=== PATIENT | male | born 1985 ===

== ENCOUNTER → 2019-03-06 | Outpatient (CLI) | payer SELFPAY ==
[2019-03-06 16:14] LABS: PLATELET COUNT, AUTOMATED 283 K/uL (150-450)
== END ==
LOC: LAB 15:48
PROVIDERS: ATTEND Orthopaedic Surgery Hand Surgery
DX: M79.671 Pain in right foot (principal); R22.41 Localized swelling, mass and lump, right lower limb
CPT/HCPCS: 36415; 84550; 85025